=== PATIENT | male | born 1950 | race Caucasian/White ===

== ENCOUNTER 2018-03-14 02:39 | Emergency (ER) | payer MEDICARE, OTHER ==
[~2018-03-14] VITALS: Ht 195.6 cm; Wt 109.1 kg
[2018-03-14 02:48] VITALS: Ht 195.6 cm; Wt 109.1 kg
[2018-03-14] MEDS ORDERED: LOPRESSOR25 MG (02:50)
[2018-03-14 04:13] VITALS: BP 135/78
== END 2018-03-14 04:14 | disposition home or self-care (01) ==
LOC: D.ER 02:39
DX: R33.9 Retention of urine, unspecified (principal); I10 Essential (primary) hypertension; R10.2 Pelvic and perineal pain